=== PATIENT | male | born 1990 | race Hispanic/Latino ===

== ENCOUNTER 2019-02-27 16:59 | Emergency (ER) | payer OTHER ==
[2019-02-27 17:12] VITALS: BP 128/84
--- NOTE | 2019-02-27 17:12 | Event Note ---
ED Screening Note Date of service: 02/27/19 Time: 17:08 ED Screening Note: This is a 28 y.o. M. that presents to the ER with headache for 5 days. Patient states he was on a slip and slide while visiting family in [place] over the weekend and hit his head. Reports photophobia and headache for several days worsening. Taking Excedrin. Patient went to Urgent Care and told to f/u in ER to r/o concussion. This initial assessment/diagnostic orders/clinical plan/treatment(s) is/are subject to change based on patients health status, clinical progression and re- assessment by fellow clinical providers in the ED. Further treatment and workup at subsequent clinical providers discretion. Patient/guardian urged not to elope from the ED as their condition may be serious if not clinically assessed and managed. Initial orders include: CT of head
--- NOTE | 2019-02-27 18:30 | Cat Scan Report ---
CT head without contrast Call history: Headache FINDINGS: No previous exams available for comparison. The brain demonstrate appropriate attenuation. The ventricular system is within normal limits in size and configuration. There is no CT evidence of acute intracranial hemorrhage or significant mass effect. The visualized paranasal sinuses are clear. All CT scans at this location are performed using the CT dose reduction for ALARA by means of automa alisa exposure control. IMPRESSION: There is no CT evidence of acute intracranial process. Signer Name: John Siddiqui MD Signed: 02/27/2019 6:25 PM Workstation Name: [id number]
--- NOTE | 2019-02-27 20:15 | Emergency Department Report ---
ED Head Trauma HPI - General Chief complaint: Head Injury Stated complaint: HEAD INJURY/POSS CONCUSION Time Seen by Provider: 02/27/19 17:08 Source: patient Mode of arrival: Ambulatory Limitations: No Limitations - History of Present Illness Initial comments: Patient is a 28-year-old white male with no past medical history presents to the ED with component of acute onset persistent intermittent headache and lightheadedness for the last 1 week after he slipped and fell down S sliding slide landing on his occipital scalp one week ago. Patient states that in the last 1 week he has had persistent headache with blurry vision intermittently and lightheadedness with occasional nausea and photophobia. Patient denies vomiting, loss of consciousness, dizziness, chest pain, shortness of breath, neck pain, change in speech, vision loss, hearing loss or numbness and tingling or weakness of upper and lower extremities bilaterally. MD Complaint: head injury, head pain -: Sudden, week(s) (1) Arrival Conditions: Negative: C-spine immobilization present, spinal board immobilization present Mechanism of Injury: mechanical fall Location: occipital Loss of Consciousness: no Previous Trauma to this Area: No Place: home Radiation: none Severity: moderate Severity scale (0 -10): 5 Quality: sharp, aching Consistency: intermittent Provoking factors: none known Other Injuries: none Associated Symptoms: denies other symptoms, nausea. denies: confusion, amnesia, repetitive questioning, vision changes, vomiting, vertigo, syncope, numbness, weakness, tingling, neck pain, other - Related Data Previous Rx's Medication Instructions Recorded Last Taken Type Butalb/Acetamin/Caff 50-325-40 1 tab PO Q6HR PRN #12 tab 02/27/19 Unknown Rx [Fioricet 50-325-40] Ketorolac [Toradol] 10 mg PO Q8H PRN #15 tablet 02/27/19 Unknown Rx Ondansetron [Zofran Odt] 4 mg PO Q6HR PRN #12 tab.rapdis 02/27/19 Unknown Rx Allergies/Adverse reactions: Allergies Allergy/AdvReac Type Severity Reaction Status Date / Time Sulfa (Sulfonamide Allergy Hives Verified 02/27/19 17:05 Antibiotics) ED Review of Systems ROS: Stated complaint: HEAD INJURY/POSS CONCUSION Other details as noted in HPI Constitutional: denies: chills, fever Eyes: denies: eye pain, eye discharge, vision change ENT: denies: ear pain, throat pain Respiratory: denies: cough, shortness of breath, wheezing Cardiovascular: denies: chest pain, palpitations Endocrine: no symptoms reported Gastrointestinal: nausea. denies: abdominal pain, diarrhea Genitourinary: denies: urgency, dysuria Musculoskeletal: denies: back pain, joint swelling, arthralgia Skin: denies: rash, lesions Neurological: headache. denies: weakness, paresthesias Psychiatric: denies: anxiety, depression Hematological/Lymphatic: denies: easy bleeding, easy bruising ED Past Medical Hx - Past Medical History Previous Medical History?: Yes Hx Asthma: Yes (seasonal) - Surgical History Past Surgical History?: Yes Additional Surgical History: left shoulder surgery - Social History Smoking Status: Never Smoker Substance Use Type: None - Medications Home Medications: Home Medications Medication Instructions Recorded Confirmed Last Taken Type Butalb/Acetamin/Caff 50-325-40 1 tab PO Q6HR PRN #12 tab 02/27/19 Unknown Rx [Fioricet 50-325-40] Ketorolac [Toradol] 10 mg PO Q8H PRN #15 tablet 02/27/19 Unknown Rx Ondansetron [Zofran Odt] 4 mg PO Q6HR PRN #12 tab.rapdis 02/27/19 Unknown Rx ED Physical Exam - General Limitations: No Limitations General appearance: alert, in no apparent distress - Head Head exam: Present: atraumatic, normocephalic, normal inspection - Eye Eye exam: Present: normal appearance, PERRL, EOMI Pupils: Present: normal accommodation - ENT ENT exam: Present: normal exam, normal orophraynx, mucous membranes moist, TM's normal bilaterally, normal external ear exam - Neck Neck exam: Present: normal inspection, full ROM - Respiratory Respiratory exam: Present: normal lung sounds bilaterally. Absent: respiratory distress, wheezes, rales, rhonchi, stridor, chest wall tenderness, accessory muscle use, decreased breath sounds, prolonged expiratory - Cardiovascular Cardiovascular Exam: Present: regular rate, normal rhythm, normal heart sounds. Absent: systolic murmur, diastolic murmur, rubs, gallop - GI/Abdominal GI/Abdominal exam: Present: soft, normal bowel sounds. Absent: tenderness, guarding, rebound, hyperactive bowel sounds, hypoactive bowel sounds, organomeg jeri - Rectal Rectal exam: Present: deferred - Extremities Exam Extremities exam: Present: normal inspection, full ROM, normal capillary refill - Back Exam Back exam: Present: normal inspection, full ROM. Absent: tenderness, muscle spasm, paraspinal tenderness, vertebral tenderness - Neurological Exam Neurological exam: Present: alert, oriented X3, CN II-XII intact, normal gait, reflexes normal - Psychiatric Psychiatric exam: Present: normal affect, normal mood - Skin Skin exam: Present: warm, dry, intact, normal color. Absent: rash ED Course Vital Signs 02/27/19 17:08 Temperature 97.9 F Pulse Rate 74 Respiratory 18 Rate Blood Pressure 128/84 O2 Sat by Pulse 97 Oximetry - Reevaluation(s) Reevaluation #1: 02/27/19 20:17 This is a 28-year-old male presenting to the ED with persistent headache after a fall 1 week ago. In the ED, patient is alert and oriented 3 and is not in distress resting comfortably while eating in the room. Patient was treated for pain in the ED and on reevaluation, patient headache as resolved. Head CT scan without contrast shows no acute intracranial abnormalities of hemorrhage. Patient was discharged home on medications and advised to follow-up with his primary care physician in 5-7 days for reevaluation or return to the ED immediately if symptoms get worse. - Radiology Data Radiology results: report reviewed, [place] [address] Cat Scan Report Signed Patient: HIRAM MCCOLLUM MR#: [id number] : 1990 Acct:[id number] Age/Sex: 28 / M ADM Date: 02/27/19 Loc: ED Attending Dr: Ordering Physician: GABRIELA PLASCENCIA Date of Service: 02/27/19 Procedure(s): CT head/brain wo con Accession Number(s): [id number] cc: GABRIELA PLASCENCIA CT head without contrast Call history: Headache FINDINGS: No previous exams available for comparison. The brain demonstrate appropriate attenuation. The ventricular system is within normal limits in size and configuration. There is no CT evidence of acute intracranial hemorrhage or significant mass effect. The visualized paranasal sinuses are clear. All CT scans at this location are performed using the CT dose reduction for ALARA by means of automated exposure control. IMPRESSION: There is no CT evidence of acute intracranial process. Signer Name: John Siddiqui MD Signed: 02/27/2019 6:25 PM Workstation Name: [id number] Transcribed By: MR Dictated By: John Siddiqui MD Electronically Authenticated By: John Siddiqui MD Signed Date/Time: 02/27/19 6253 - Medical Decision Making This is a 28-year-old male presenting to the ED with persistent headache after a fall 1 week ago. In the ED, patient is alert and oriented 3 and is not in distress resting comfortably while eating in the room. Patient was treated for pain in the ED and on reevaluation, patient headache as resolved. Head CT scan without contrast shows no acute intracranial abnormalities of hemorrhage. Patient was discharged home on medications and advised to follow-up with his primary care physician in 5-7 days for reevaluation or return to the ED immediately if symptoms get worse. - Differential Diagnosis Head injury; Post-concussion syndrome; post-traumatic headache - Core Measures AMI Core Measures Followed: No Measure Exclusions: not indicated - NEXUS Criteria Focal neurological deficit present: No Midline spinal tenderness present: No Altered level of consciousness: No Intoxication present: No Distracting injury present: No NEXUS results: C-Spine can be cleared clinically by these results. Imaging is not required. Critical care attestation.: If time is entered above; I have spent that time in minutes in the direct care of this critically ill patient, excluding procedure time. ED Disposition Clinical Impression: Post-concussion headache Acute post-traumatic headache Qualifiers: Intractability: not intractable Qualified Code(s): G44.319 - Acute post- traumatic headache, not intractable Disposition: DC-01 TO HOME OR SELFCARE Is pt being admited?: No Does the pt Need Aspirin: No Condition: Stable Instructions: Acute Headache (ED), Post Concussion Syndrome (ED) Additional Instructions: Take medication with food, drink plenty of fluids and follow-up with your primary care physician in 5-7 days for reevaluation. Return to the ED immediately if symptoms get worse. Prescriptions: Butalb/Acetamin/Caff 50-325-40 [Fioricet 50-325-40] 1 tab PO Q6HR PRN #12 tab PRN Reason: Headache Ketorolac [Toradol] 10 mg PO Q8H PRN #15 tablet PRN Reason: Pain Ondansetron [Zofran Odt] 4 mg PO Q6HR PRN #12 tab.rapdis PRN Reason: Nausea Referrals: [facility] [Outside] - 3-5 Days Time of Disposition: 20:12 Print Language: BANGLADESHI
[2019-02-27] MEDS ORDERED: FIORICET PO ONE (20:22)
[2019-02-27] MEDS ORDERED: ZOFRAN ODT PO ONE (20:22)
== END 2019-02-27 20:46 | disposition home or self-care (01) ==
LOC: ED 16:59
DX: G44.319 Acute post-traumatic headache, not intractable (principal); J45.909 Unspecified asthma, uncomplicated; Z88.2 Allergy status to sulfonamides
CPT/HCPCS: 70450; Q0162